=== PATIENT | male | born 1985 | race Caucasian/White ===

== ENCOUNTER 2016-10-31 18:09 | Emergency (ER) | payer OTHER ==
[2016-10-31 18:18] VITALS: BP 127/88; PULSE 100; TEMP 97.8; BMI 28.8
--- NOTE | 2016-10-31 18:34 | PDOC ---
History of Present Illness - General Chief Complaint: Injury Stated Complaint: INJURY/YPD Time Seen by Provider: 10/31/16 18:27 History Source: Patient Exam Limitations: No Limitations - History of Present Illness Occurred: reports: just prior to arrival Lower Extremity Pain Location: left: knee Lower Ext. Injury Location - Specific Injury Location Hips: left hip: no evidence of injury, normal inspection, normal range of motion Legs: left: normal inspection, non-tender, normal range of motion Knees: left swelling, left pain Ankle: left no evidence of injury, left normal inspection, left normal range of motion Extremity Pain Location - Extremity Pain Location Extremity Pain Locations: left: knee Past History - Travel Traveled outside of the country in the last 30 days: No Close contact w/someone who was outside of country & ill: No - Past Medical History Allergies/Adverse Reactions: Allergies Allergy/AdvReac Type Severity Reaction Status Date / Time cefaclor [From Ceclor] Allergy Unknown Verified 10/31/16 18:13 Home Medications: Ambulatory Orders Levofloxacin [Levaquin] 500 mg PO DAILY #5 tablet 10/31/16 Other medical history: none - Immunization History Immunization Up to Date: Yes - Psycho/Social/Smoking Cessation Hx Suicidal Ideation: No Smoking History: Never smoked Have you smoked in the past 12 months: No Information on smoking cessation initiated: No Hx Alcohol Use: No Drug/Substance Use Hx: No Substance Use Type: None Review of Systems - Review of Systems Able to Perform ROS?: Yes Comments:: 10/31/16 18:37 CONSTITUTIONAL: Absent: fever, chills, diaphoresis, generalized weakness, malaise, loss of appetite HEENT: Absent: rhinorrhea, nasal congestion, throat pain, throat swelling, difficulty swallowing, mouth swelling, ear pain, eye pain, visual Changes CARDIOVASCULAR: Absent: chest pain, loss of consciousness, palpitations, irregular heart rate, peripheral edema RESPIRATORY: Absent: cough, shortness of breath, dyspnea with exertion, orthopnea, wheezing, stridor, hemoptysis GASTROINTESTINAL: Absent: abdominal pain, abdominal distension, nausea, vomiting, diarrhea, constipation, melena, hematochezia GENITOURINARY: Absent: dysuria, frequency, urgency, hesitancy, hematuria, flank pain, genital pain MUSCULOSKELETAL: Absent: myalgia, arthralgia SKIN: Absent: rash, itching, pallor HEMATOLOGIC/IMMUNOLOGIC: Absent: easy bleeding, easy bruising, lymphadenopathy, frequent infections ENDOCRINE: Absent: unexplained weight gain, unexplained weight loss, heat intolerance, cold intolerance NEUROLOGIC: Absent: headache, focal weakness or paresthesias, dizziness, unsteady gait, seizure, mental status changes, bladder or bowel incontinence PSYCHIATRIC: Absent: anxiety, depression, suicidal or homicidal ideation, hallucinations. Left knee: Pain on touch neg ext numbess/tingling sensation left 4th digit: 1.5cc superficial horizontal abrasion to later-medial prox phalanx Is the patient limited Yi proficient: No *Physical Exam - Vital Signs Last Vital Signs Temp Pulse Resp BP Pulse Ox 97.8 F 100 H 18 127/88 98 10/31/16 18:13 10/31/16 18:13 10/31/16 18:13 10/31/16 18:13 10/31/16 18:13 - Physical Exam Comments: 10/31/16 18:39 GENERAL: Well developed, well nourished. Awake and alert. No acute distress. HEENT: Normocephalic, atraumatic. PERRLA, EOMI. No conjunctival pallor. Sclera are non- icteric. Moist mucous membranes. Oropharynx is clear. NECK: Supple. Full ROM. No JVD. Carotid pulses 2+ and symmetric, without bruits. No thyromegaly. No lymphadenopathy. CARDIOVASCULAR: Regular rate and rhythm. No murmurs, rubs, or gallops. Distal pulses are 2+ and symmetric. PULMONARY: No evidence of respiratory distress. Lungs clear to auscultation bilaterally. No wheezing, rales or rhonchi. ABDOMINAL: Soft. Non-tender. Non-distended. No rebound or guarding. No organomegaly. Normoactive bowel sounds. MUSCULOSKELETAL Normal range of motion at all joints. No bony deformities or tenderness. No CVA tenderness. EXTREMITIES: No cyanosis. No clubbing. No edema. No calf tenderness. SKIN: Warm and dry. Normal capillary refill. No rashes. No jaundice. NEUROLOGICAL: Alert, awake, appropriate. Cranial nerves 2-12 intact. No deficits to light touch and temperature in face, upper extremities and lower extremities. No motor deficits in the in face, upper extremities and lower extremities. Normoreflexic in the upper and lower extremities. Normal speech. Toes are down- going bilaterally. Gait is normal without ataxia. PSYCHIATRIC: Cooperative. Good eye contact. Appropriate mood and affect. Left 4th digit: 1.5cc superficial horizontal abrasion to later-medial prox phalanx neg active bleeding F.R.O.M. neg swelling neg pain Left knee F.R.O.M. +mild swelling Neg obv deformities Left hip F.R.O.M. 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 Patient states he also has an abrasion to his left fourth digit. Patient reports while wrestling with an alleged perp, he fell onto his left knee and was possibly scratched causing the abrasion to his left fourth digit. Patient states the knee pain is described as 6/10 dull nonradiating intermittent discomfort. The pain is exacerbated on touch and alleviated minimally at rest. Patient denies any extremity numbness or tingling sensation. Patient denies any headache, dizziness, lightheadedness, neck/back pains, chest pain, shortness of breath or abdominal pains. Patient denies any other injuries or complaints. Pt unk if abrasion is from human mouth/ teeth. syed left knee pt refuses crutches Pt adamantly refuses any exposure blood work or HIV/hep cocktail meds *DC/Admit/Observation/Transfer Diagnosis at time of Disposition: Contusion of left knee Qualifiers: Encounter type: initial encounter Qualified Code(s): S80.02XA - Contusion of left knee, initial encounter Human bite of finger Qualifiers: Encounter type: initial encounter Qualified Code(s): S61.259A - Open bite of unspecified finger without damage to nail, initial encounter; W50.3XXA - Accidental bite by another person, initial encounter Abrasion of finger Qualifiers: Encounter type: initial encounter Qualified Code(s): S60.419A - Abrasion of unspecified finger, initial encounter - Discharge Dispostion Disposition: HOME Condition at time of disposition: Improved - Prescriptions Prescriptions: Levofloxacin [Levaquin] 500 mg PO DAILY #5 tablet - Referrals Referrals: Noel Nelson MD [Staff Physician] - - Patient Instructions Additional Instructions: Rest Ice 20 mins on alternating with 20 mins off for 48 hours while awake Take tylenol/motrin as needed for pain Levaquin 500mg one tablet daily/ you state that you are allergic to penicillin (Prophylaxis, due to the abrasion sustained to your left fourth finger. You are unsure if it came from someone teeth/Eikenella infection) Follow-up with the occupational therapist and the orthopedic surgeon listed on your discharge as needed.
[2016-11-01] MEDS ORDERED: LEVOFLOXACIN 750 MG TABLET PO SCH (18:42)
== END 2016-10-31 19:29 | disposition home or self-care (01) ==
LOC: JERFT 18:09
DX: S80.02XA Contusion of left knee, initial encounter (principal); S60.475A Other superficial bite of left ring finger, initial encounter; S60.415A Abrasion of left ring finger, initial encounter; W50.3XXA Accidental bite by another person, initial encounter; Y35.811A Legal intervention involving manhandling, law enforcement official injured, initial encounter; Y93.89 Activity, other specified; Y92.89 Other specified places as the place of occurrence of the external cause; Y99.0 Civilian activity done for income or pay
CPT/HCPCS: 73560-TC-LT; 99281-25

== ENCOUNTER 2017-03-31 11:55 | Emergency (ER) | payer BC, OTHER ==
[2017-03-31 11:59] VITALS: BP 136/84; PULSE 74; TEMP 98.5; BMI 29.5
--- NOTE | 2017-03-31 12:30 | PDOC ---
History of Present Illness - General Chief Complaint: Sore Throat Stated Complaint: THROAT PAIN Time Seen by Provider: 03/31/17 12:18 History Source: Patient Exam Limitations: No Limitations - History of Present Illness Initial Comments: 03/31/17 12:24 c/o pain and diff swallowing x 5 days. Timing/Duration: unsure Severity: mild, moderate Associated Symptoms: reports: cough, fever/chills, headaches, malaise. denies: nausea/vomiting, shortness of breath Past History - Travel Traveled outside of the country in the last 30 days: No Close contact w/someone who was outside of country & ill: No - Past Medical History Allergies/Adverse Reactions: Allergies Allergy/AdvReac Type Severity Reaction Status Date / Time cefaclor [From Ceclor] Allergy Unknown Verified 03/31/17 11:59 Home Medications: Ambulatory Orders Azithromycin [Zithromax -] 250 mg PO UTDICT #6 tab 03/31/17 Other medical history: NONE - Immunization History Immunization Up to Date: Yes - Psycho/Social/Smoking Cessation Hx Anxiety: No Suicidal Ideation: No Smoking History: Never smoked Have you smoked in the past 12 months: No Hx Alcohol Use: Yes (SOCIAL) Drug/Substance Use Hx: No Substance Use Type: None Review of Systems - Review of Systems Able to Perform ROS?: Yes Is the patient limited Icelandic proficient: Yes Constitutional: Yes: Symptoms Reported, See HPI, Malaise HEENTM: Yes: Nose Congestion, Throat Pain, Difficulty Swallowing Respiratory: Yes: Symptoms reported, See HPI, Cough (non productive ). No: Wheezing Musculoskeletal: Yes: See HPI. No: Symptoms Reported Integumentary: Yes: See HPI. No: Symptoms Reported Neurological: Yes: See HPI. No: Symptoms reported All Other Systems: Reviewed and Negative *Physical Exam - Vital Signs Last Vital Signs Temp Pulse Resp BP Pulse Ox 98.5 F 74 18 136/84 98 03/31/17 11:56 03/31/17 11:56 03/31/17 11:56 03/31/17 11:56 03/31/17 11:56 - Physical Exam Comments: 03/31/17 12:33 General Appearance: Yes: Nourished, Appropriately Dressed, Apparent Distress, Mild Distress HEENT: positive: MICHI, TMs Normal, Muffled/Hoarse voice, Tonsillar Erythema (no exudate), Nasal Congestion, Rhinorrhea. negative: Normal ENT Inspection, Pharynx Normal, Sinus Tenderness Neck: positive: Supple, Lymphadenopathy (R), Lymphadenopathy (L). negative: Tender Respiratory/Chest: positive: Lungs Clear, Normal Breath Sounds. negative: Respiratory Distress Gastrointestinal/Abdominal: positive: Soft. negative: Tender Musculoskeletal: positive: Normal Inspection Extremity: positive: Normal Capillary Refill, Normal Inspection, Normal Range of Motion, Tender, Pelvis Stable Integumentary: positive: Dry, Warm, Pale Neurologic: positive: chemist instrumentation II-XII NML intact, Fully Oriented, Alert, Normal Mood/ Affect, Normal Response, Motor Strength 02/02 Medical Decision Making - Medical Decision Making 03/31/17 12:47 Upper respiratory infection, and sinus. We'll treat with Z-Jose *DC/Admit/Observation/Transfer Diagnosis at time of Disposition: Bronchitis Pharyngitis Qualifiers: Pharyngitis/tonsillitis etiology: unspecified etiology Qualified Code(s): J02.9 - Acute pharyngitis, unspecified - Discharge Dispostion Disposition: HOME Condition at time of disposition: Stable Admit: No - Patient Instructions Printed Discharge Instructions: DI for Viral Upper Respiratory Infection -- Adult Additional Instructions: Rest, drink lots of fluids: Teas, water, soups, Pedialyte Saltwater gargles Steamy showers/seem to face break up mucus Avoid contact with others until fevers and cough resolved Lots of handwashing and good hygiene Continue [id number] medications for symptomatic relief Tylenol or Motrin for fever and pain Zithromax as directed Followup with private physician in one to 2 days as needed Return to emergency department for worsened symptoms, fevers, dehydration - Post Discharge Activity Work/School Note: Back to Work
== END 2017-03-31 12:53 | disposition home or self-care (01) ==
LOC: JERFT 11:55
DX: J40 Bronchitis, not specified as acute or chronic (principal); J02.9 Acute pharyngitis, unspecified
CPT/HCPCS: 99281-25

== ENCOUNTER 2017-09-04 16:25 | Emergency (ER) | payer BC, OTHER ==
[2017-09-04 16:34] VITALS: BP 138/84; PULSE 85; TEMP 98.3; BMI 29.5
--- NOTE | 2017-09-04 16:34 | PDOC ---
Rapid Medical Evaluation Time Seen by Provider: 09/04/17 16:27 Medical Evaluation: Allergies Allergy/AdvReac Type Severity Reaction Status Date / Time cefaclor [From [facility]] Allergy Unknown Verified 06/25/17 21:49 09/04/17 16:27 I have performed a brief in-person evaluation of this patient. The patient presents with a chief complaint of: Body aches, sore throat, subjective fever x 1 week. No pmhx. No recent travel or sick contacts Pertinent physical exam findings: Vss and well srinath w/ unremarkable exam I have ordered the following:rapid strep/cx The patient will proceed to the ED for further evaluation.
[2017-09-04] MEDS ORDERED: KETOROLAC TROMETHAMINE 60 MG/2 ML VIAL IM ONE (17:31)
[2017-09-04] MEDS ORDERED: DEXAMETHASONE LIQUID 0.5 MG/5 ML 240 ML BULK BOTTLE PO ONE (17:31)
--- NOTE | 2017-09-04 17:31 | PDOC ---
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 Patient reports that that 5 days ago he had severe body aches that lasted a few days. Patient reports that he has not had any nasal congestion, cough or any other symptoms. Patient denies any recent sick contacts. Patient reports that he has had diaphoresis 5 days. Patient did not have influenza vaccine. Timing/Duration: changing over time Associated Symptoms: reports: fever/chills, other (bodyaches, diaphoresis, sore throat) Past History - Past Medical History Allergies/Adverse Reactions: Allergies Allergy/AdvReac Type Severity Reaction Status Date / Time cefaclor [From Ceclor] Allergy Unknown Verified 09/04/17 16:27 Home Medications: Ambulatory Orders NK [No Known Home Medication] 09/04/17 COPD: No - Immunization History Immunization Up to Date: Yes - Suicide/Smoking/Psychosocial Hx Smoking History: Never smoked Have you smoked in the past 12 months: No Information on smoking cessation initiated: No Hx Alcohol Use: No Drug/Substance Use Hx: No Substance Use Type: None Review of Systems - Review of Systems Able to Perform ROS?: Yes Constitutional: Yes: Fever, Night Sweats HEENTM: Yes: Throat Pain Respiratory: No: Symptoms reported Cardiac (ROS): No: Symptoms Reported ABD/GI: No: Symptoms Reported Musculoskeletal: Yes: Other (myalgia generalized) Integumentary: No: Symptoms Reported Neurological: No: Symptoms reported *Physical Exam - Vital Signs Last Vital Signs Temp Pulse Resp BP Pulse Ox 98.3 F 85 18 138/84 100 09/04/17 16:29 09/04/17 16:29 09/04/17 16:29 09/04/17 16:29 09/04/17 16:29 - Physical Exam General Appearance: Yes: Appropriately Dressed HEENT: positive: TMs Normal, Pharyngeal Erythema, Tonsillar Erythema (with no uvular deviation). negative: Tonsillar Exudate Neck: positive: Lymphadenopathy (R), Lymphadenopathy (L) Respiratory/Chest: positive: Lungs Clear, Normal Breath Sounds. 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 Patient reports that that 5 days ago he had severe body aches that lasted a few days. Patient reports that he has not had any nasal congestion, cough or any other symptoms. Patient denies any recent sick contacts. Patient reports that he has had diaphoresis 5 days. Patient did not have influenza vaccine. r/o strep tonsillitis r/o influenza A or B PLAN: ordered by ELIF Fontenot throat C & S rapid negative ordered by HAN CONWAY influenza A or B rapid negative toradol 60 mg IM decadron 10 mg po now 09/04/17 19:40 *DC/Admit/Observation/Transfer Diagnosis at time of Disposition: Influenza-like illness - Discharge Dispostion Disposition: HOME Condition at time of disposition: Stable - Referrals Referrals: Noel Hobbs MD [Primary Care Provider] - - Patient Instructions Additional Instructions: Drink a lot a fluids and rest Take ibuprofen as needed as directed by linux systems engineer for fever or any body aches or for sore throat May purchase Cepacol throat lozenges [id number] and use as directed for sore throat Return to emergency room if any difficulty breathing or swallowing Follow-up with your primary care provider as soon as possible Patient voiced understanding of discharge instructions and all questions were answered - Post Discharge Activity
[2017-09-04] MEDS ORDERED: DEXAMETHASONE SOD PHOSPHATE 10 MG/1 ML VIAL ONE (17:32)
[2017-09-04] MEDS ORDERED: KETOROLAC TROMETHAMINE 60 MG/2 ML VIAL ONE (17:32)
== END 2017-09-04 18:06 | disposition home or self-care (01) ==
LOC: JERFT 16:25
PROC: 3E0233Z Introduction of Anti-inflammatory into Muscle, Percutaneous Approach (ICD-10-PCS; principal; 2017-09-04)
DX: J11.1 Influenza due to unidentified influenza virus with other respiratory manifestations (principal)
CPT/HCPCS: 87070; 87430; 87804; 99281-25

== ENCOUNTER 2019-03-03 23:53 | Emergency (ER) | payer OTHER | END 2019-03-04 00:36 | disposition home or self-care (01) | LOC: JER 23:53 | DX: H93.13 Tinnitus, bilateral (principal); Y35.091A Legal intervention involving other firearm discharge, law enforcement official injured, initial encounter; Y93.89 Activity, other specified; Y92.818 Other transport vehicle as the place of occurrence of the external cause; Y99.0 Civilian activity done for income or pay ==

== ENCOUNTER 2019-12-12 18:22 | Emergency (ER) | payer OTHER ==
[2019-12-12 18:44] VITALS: BP 131/78; PULSE 86; TEMP 98.1; BMI 33.2
[2019-12-12] MEDS ORDERED: IBUPROFEN 600 MG TABLET (FP) PO ONE ×2 (18:50→18:52)
--- NOTE | 2019-12-12 18:53 | PDOC ---
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 Patient reported pain as aching 2 out of 10 pain. Denies weakness or restricted arm or knee movement. Denies any numbness or tingling sensation. Denies problem with ambulation. Patient did not take anything for pain Occurred: reports: just prior to arrival Past History - Past Medical History Allergies/Adverse Reactions: Allergies Allergy/AdvReac Type Severity Reaction Status Date / Time cefaclor [From Ceclor] Allergy Unknown Verified 03/04/19 00:24 Home Medications: Ambulatory Orders Ibuprofen 600 mg PO Q8H PRN #12 tablet 12/12/19 COPD: No - Immunization History Immunization Up to Date: Yes - Psycho Social/Smoking Cessation Hx Smoking History: Never smoked Have you smoked in the past 12 months: No Hx Alcohol Use: No Drug/Substance Use Hx: No Substance Use Type: None Review of Systems - Review of Systems Able to Perform ROS?: Yes Is the patient limited Portuguese proficient: No Constitutional: No: Chills, Fever, Malaise HEENTM: No: Symptoms Reported, See HPI, Eye Pain, Blurred Vision, Tearing, Recent change in vision, Double Vision, Cataracts, Ear Pain, Ocular Prothesis, Ear Discharge, Nose Pain, Nose Congestion, Tinnitus, Nose Bleeding, Hearing Loss, Throat Pain, Throat Swelling, Mouth Pain, Dental Problems, Difficulty Swallowing, Mouth Swelling, Other Respiratory: No: Symptoms reported, See HPI, Cough, Orthopnea, Shortness of Breath, SOB with Exertion, SOB at Rest, Stridor, Wheezing, Productive cough, Hemoptysis, Other Cardiac (ROS): No: Symptoms Reported, See HPI, Chest Pain, Edema, Irregular Heart Rate, Lightheadedness, Palpitations, Syncope, Chest Tightness, Other ABD/GI: No: Symptoms Reported, See HPI, Constipated, Diarrhea, Nausea, Vomiting, Abdominal cramping : No: Symptoms Reported Musculoskeletal: Yes: Symptoms Reported, See HPI, Joint Pain (mild anterior b/l knee pain), Muscle Pain (aching left shoulder pain). No: Joint Swelling Integumentary: No: Symptoms Reported Neurological: No: Symptoms reported, Headache, Numbness All Other Systems: Reviewed and Negative *Physical Exam - Vital Signs Last Vital Signs Temp Pulse Resp BP Pulse Ox 98.1 F 86 16 131/78 99 12/12/19 18:38 12/12/19 18:38 12/12/19 18:38 12/12/19 18:38 12/12/19 18:38 - Physical Exam 12/12/19 19:00 GENERAL: Well developed, well nourished. Awake and alert. No acute distress. PULMONARY: No evidence of respiratory distress. MUSCULOSKELETAL : mild tenderness over bilateral anterior knees. No visible deformity, swelling or joint effusion. Mild tenderness to anterior left shoulder. Full range of motion of left shoulder. 5 out of 5 strength to left shoulder. SKIN: Warm and dry. Normal capillary refill. Mild increased erythema to bilateral patella. No visible swelling NEUROLOGICAL: Alert, awake, appropriate. No motor deficits in the lower extremities. Gait is normal without ataxia. PSYCHIATRIC: Cooperative. Good eye contact. Appropriate mood and affect. General Appearance: Yes: Nourished, Appropriately Dressed. No: Apparent Distress Medical Decision Making - Medical Decision Making 12/12/19 18:58 Patient with no significant past medical history present with complaint of aching bilateral anterior knee pain and left shoulder discomfort status post trying to arrest a suspect and straining left shoulder and hitting bilateral knee on the ground. Patient reported pain as aching 2 out of 10 pain. Denies weakness or restricted arm or knee movement. Denies any numbness or tingling sensation. Denies problem with ambulation. Patient did not take anything for pain Exam significant for mild discomfort to bilateral patellar with no visible swelling or deformity. Mild increased erythema to bilateral patella over area of contusion. Mild tenderness to anterior left shoulder. Free range of motion of left shoulder. 5 out of 5 muscle strength to left shoulder. Patient symptoms likely knee contusion and left shoulder sprain. Motrin 600 mg p.o. ordered for pain. Patient stable for discharge on Motrin p.o. for pain with advised to rest and no strenuous activity for the next 24-hour with PCP follow-up as needed Discharge - Discharge Information Problems reviewed: Yes Clinical Impression/Diagnosis: Contusion of right knee, initial encounter Contusion of knee, left Qualifiers: Encounter type: initial encounter Qualified Code(s): S80.02XA - Contusion of left knee, initial encounter Left shoulder strain Qualifiers: Encounter type: initial encounter Qualified Code(s): S46.912A - Strain of unspecified muscle, fascia and tendon at shoulder and upper arm level, left arm, initial encounter Condition: Stable Disposition: HOME - Admission No - Additional Discharge Information Prescriptions: Ibuprofen 600 mg PO Q8H PRN #12 tablet PRN Reason: pain - Follow up/Referral Referrals: Noel Hobbs MD [Primary Care Provider] - - Patient Discharge Instructions Patient Printed Discharge Instructions: DI for Shoulder Sprain Additional Instructions: Your knees pain is likely from knee contusion and your shoulder pain is likely from shoulder strain. Take Motrin as needed for pain. No strenuous activity for the next 24 hours. Follow-up with primary care as needed - Post Discharge Activity Work/Back to School Note: Back to Work
== END 2019-12-12 18:57 | disposition home or self-care (01) ==
LOC: JERFT 18:22 → JER 18:22 → JERFT 18:57
DX: S46.812A Strain of other muscles, fascia and tendons at shoulder and upper arm level, left arm, initial encounter (principal); S80.02XA Contusion of left knee, initial encounter; S80.01XA Contusion of right knee, initial encounter; Y35.811A Legal intervention involving manhandling, law enforcement official injured, initial encounter; Y93.89 Activity, other specified; Y92.89 Other specified places as the place of occurrence of the external cause; Y99.0 Civilian activity done for income or pay; Z88.8 Allergy status to other drugs, medicaments and biological substances
CPT/HCPCS: 99283-25

== ENCOUNTER 2023-07-07 16:38 | Emergency (ER) | payer OTHER ==
[2023-07-07 17:01] VITALS: BP 131/91; PULSE 89; RESP 14; TEMP 98; BMI 36.9
[2023-07-07] MEDS ORDERED: KETOROLAC TROMETHAMINE 15 MG/ML VIAL IM ONE (17:25)
[2023-07-07] MEDS ORDERED: KETOROLAC TROMETHAMINE 15 MG/ML VIAL ONE (17:26)
== END 2023-07-07 17:43 | disposition home or self-care (01) ==
LOC: FER 16:38
PROC: 3E0233Z Introduction of Anti-inflammatory into Muscle, Percutaneous Approach (ICD-10-PCS; principal; 2023-07-07)
DX: M54.50 Low back pain, unspecified (principal); M79.604 Pain in right leg; V49.49XA Driver injured in collision with other motor vehicles in traffic accident, initial encounter; Y92.410 Unspecified street and highway as the place of occurrence of the external cause
CPT/HCPCS: 99284-25

== ENCOUNTER 2024-07-10 03:54 | Day surgery (SDC) | payer OTHER ==
[2024-07-08 14:30] VITALS: BMI 26.6
[2024-07-10] MEDS ORDERED: ACETAMINOPHEN 500 MG TABLET (FP) PO PRN (08:44)
[2024-07-10 10:50] VITALS: BP 118/74; PULSE 70; RESP 20; TEMP 97.3
[2024-07-10] MEDS ORDERED: DEXAMETHASONE SOD PHOSPHATE 10 MG/1 ML VIAL ONE (12:34)
[2024-07-10] MEDS ORDERED: LIDOCAINE HCL/PF 1% SDV 5ML VIAL ONE (12:34)
== END 2024-07-10 12:35 | disposition home or self-care (01) ==
LOC: JASU-SURG 03:54
PROVIDERS: ATTEND Pain Medicine Pain Medicine
PROC: 3E0R3BZ Introduction of Anesthetic Agent into Spinal Canal, Percutaneous Approach (ICD-10-PCS; 2024-07-10)
PROC: 3E0R33Z Introduction of Anti-inflammatory into Spinal Canal, Percutaneous Approach (ICD-10-PCS; principal; 2024-07-10 12:00)
DX: M54.16 Radiculopathy, lumbar region (principal)
CPT/HCPCS: 76000-TC-FY; J1100

== ENCOUNTER 2024-08-15 05:12 | Day surgery (SDC) | payer OTHER ==
[2024-08-13 10:53] VITALS: BMI 26.9
[2024-08-15] MEDS ORDERED: ACETAMINOPHEN 500 MG TABLET (FP) PO PRN (09:15)
[2024-08-15 11:41] VITALS: RESP 20
[2024-08-15] MEDS: LIDOCAINE 1% P/F 10 MG/ML VIAL INF ONE ×2 (12:43)
[2024-08-15] MEDS: DEXAMETHASONE SOD PHOSPHATE 10 MG/1 ML VIAL IVPUSH ONE ×2 (12:47)
[2024-08-15] MEDS: IOHEXOL 180 MG/1 ML ML IJ ONE ×2 (12:47)
[2024-08-15 13:02] VITALS: BP 128/82; PULSE 75; TEMP 97.3
== END 2024-08-15 12:58 | disposition home or self-care (01) ==
LOC: JASU-SURG 05:12
PROVIDERS: ATTEND Pain Medicine Pain Medicine
PROC: 3E0R3BZ Introduction of Anesthetic Agent into Spinal Canal, Percutaneous Approach (ICD-10-PCS; 2024-08-15)
PROC: 3E0R33Z Introduction of Anti-inflammatory into Spinal Canal, Percutaneous Approach (ICD-10-PCS; principal; 2024-08-15 12:45)
DX: M54.16 Radiculopathy, lumbar region (principal)
CPT/HCPCS: 76000-TC-FY; J1100

== ENCOUNTER 2024-09-12 04:50 | Day surgery (SDC) | payer OTHER ==
[2024-09-10 19:10] VITALS: BMI 27.3
[2024-09-12] MEDS ORDERED: ACETAMINOPHEN 500 MG TABLET (FP) PO PRN (12:12)
[2024-09-12 13:32] VITALS: RESP 18
[2024-09-12] MEDS: LIDOCAINE HCL 1% PRESERVATIVE FREE - 30ML VIAL IJ ONE (15:00)
[2024-09-12 15:53] VITALS: BP 117/76; PULSE 78; TEMP 97.7
== END 2024-09-12 16:20 | disposition home or self-care (01) ==
LOC: JASU-SURG 04:50
PROVIDERS: ATTEND Pain Medicine Pain Medicine
PROC: 01HY3MZ Insertion of Neurostimulator Lead into Peripheral Nerve, Percutaneous Approach (ICD-10-PCS; principal; 2024-09-12 14:00)
DX: G89.4 Chronic pain syndrome (principal); M54.50 Low back pain, unspecified
CPT/HCPCS: 64555; C1778; 76000-TC-FY